=== PATIENT | male | born 1995 | race Caucasian/White ===

== ENCOUNTER 2018-06-17 17:06 | Emergency (ER) | payer OTHER ==
[~2018-06-17] VITALS: Ht 190.5 cm; Wt 61.7 kg
--- NOTE | 2018-06-17 18:36 | NUR ---
pt was evaluated by dr mccarthy. pt was d/c'd to home. d/c instructions given to the pt.
[2018-06-17 18:39] VITALS: BP 129/77
== END 2018-06-17 18:40 | disposition home or self-care (01) ==
LOC: ER 17:08
DX: M25.571 Pain in right ankle and joints of right foot (principal); F17.200 Nicotine dependence, unspecified, uncomplicated
CPT/HCPCS: 73610; A4663